=== PATIENT | male | born 1985 | race Caucasian/White ===

== ENCOUNTER 2019-11-21 19:02 | Emergency (ER) | payer MEDICAID, OTHER ==
[~2019-11-21] VITALS: Ht 180.3 cm; Wt 106.6 kg
[2019-11-21] MEDS ORDERED: IBUPROFEN 800 MG TAB PO ONE (22:00)
[2019-11-21] MEDS ORDERED: BACLOFEN 10 MG TAB PO ONE (22:00)
[2019-11-21] MEDS ORDERED: ACETAMINOPHEN 500 MG TAB PO ONE (22:00)
[2019-11-21 22:13] VITALS: BP 114/69
== END 2019-11-21 22:40 | disposition home or self-care (01) ==
LOC: ER 19:10
DX: S13.4XXA Sprain of ligaments of cervical spine, initial encounter (principal); M62.838 Other muscle spasm; V89.2XXA Person injured in unspecified motor-vehicle accident, traffic, initial encounter; Y93.I9 Activity, other involving external motion; Y92.410 Unspecified street and highway as the place of occurrence of the external cause; Y99.8 Other external cause status
CPT/HCPCS: 72125; 72128; 72131

== ENCOUNTER 2020-04-12 22:21 | Emergency (ER) | payer MEDICAID, OTHER ==
[~2020-04-12] VITALS: Ht 180.3 cm; Wt 104.3 kg
[2020-04-12 23:00] VITALS: BP 119/65
[2020-04-12] MEDS ORDERED: FLUORESCEIN SOD 1 MG TEST STRIP LEFTEYE ONE (23:00)
[2020-04-12] MEDS ORDERED: TETRACAINE HCL 0.5% OPTH(EYE) SOLN 4ML LEFTEYE ONE (23:00)
== END 2020-04-12 23:32 | disposition home or self-care (01) ==
LOC: ER 22:21
DX: S05.02XA Injury of conjunctiva and corneal abrasion without foreign body, left eye, initial encounter (principal); X58.XXXA Exposure to other specified factors, initial encounter; Y93.89 Activity, other specified; Y92.89 Other specified places as the place of occurrence of the external cause; Y99.8 Other external cause status

== ENCOUNTER 2025-04-29 21:40 | Emergency (ER) | payer BC, MEDICAID ==
[~2025-04-29] VITALS: Ht 180.3 cm; Wt 100.0 kg
[2025-04-29 22:07] VITALS: TEMP 98.6
[2025-04-29] MEDS: ONDANSETRON HCL 4 MG/2 ML VIAL IV ONE (22:18)
[2025-04-29] MEDS: MORPHINE SULFATE 4 MG/ML SYR/VIAL IV ONE (22:18)
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
--- NOTE | 2025-04-29 22:45 | DVH ---
COMPUTERIZED TOMOGRAPHY OF THE HEAD WITHOUT CONTRAST COMPUTERIZED TOMOGRAPHY OF THE CERVICAL SPINE, NONCONTRAST REASON FOR STUDY: HEAD INJURY. NECK INJURY. COMPARISON: None TECHNIQUE: Helical tomographic scans were obtained through the brain. 2-D coronal and sagittal reformatted images are provided. Automated exposure control was used. CT of the entire cervical spine was performed in routine fashion with sagittal and coronal reconstructions. Soft tissues and bone windows were filmed. Radiation optimization: All CT scans at this facility use at least one of these dose optimization techniques: Automated exposure control mA and/or kV adjustment per patient size (includes targeted exams where dose is matched to clinical indication) or iterative reconstruction. RADIATION DOSE: Head: CTDI: 61 mGy DLP: 978 mGy-cm C-Spine: CTDI: 27 mGy DLP: 740 mGy-cm FINDINGS: No suspicious intracranial hyperdensity to suggest acute blood. There is no mass effect nor midline shift. There is no hydrocephalus. The suprasellar cistern is intact. The calvarium is intact. The visualized mastoid air cells and paranasal sinuses are clear. There is right frontal scalp la ceration in the supraorbital region. The intraorbital structures appear normal. The vertebral bodies are normal in height with no evidence of fracture. There is maintenance of the normal cervical lordosis. There is moderate disc height loss at C6-C7 with endplate hypertrophy. There is no listhesis. The prevertebral soft tissues are within normal limits. There is no pathologic lymphadenopathy identified by size criteria. The visualized lung apices are grossly clear IMPRESSION: No acute intracranial abnormality. No evidence of acute fracture of the cervical spine.
[2025-04-30] MEDS ORDERED: LIDOCAINE W/ EPINEPHRINE 1.5 % INJ 5ML AMP IJ ONE (00:15)
[2025-04-30] MEDS: LIDOCAINE 1% HCL (LOCAL ANESTH.) INJ 20ML MDV ID ONE (00:30)
[2025-04-30 01:00] VITALS: BP 114/76; PULSE 54; RESP 19; O2SAT 96
[2025-04-30] MEDS ORDERED: IBUP-1456 PO (01:03)
== END 2025-04-30 02:11 | disposition home or self-care (01) ==
LOC: ER 21:40
DX: S06.0X0A Concussion without loss of consciousness, initial encounter (principal); S01.81XA Laceration without foreign body of other part of head, initial encounter; S13.4XXA Sprain of ligaments of cervical spine, initial encounter; W22.8XXA Striking against or struck by other objects, initial encounter; Y93.89 Activity, other specified; Y92.89 Other specified places as the place of occurrence of the external cause; Y99.8 Other external cause status
CPT/HCPCS: 12014; 70450; 72125; 96374; 96375; 99285; A4649; J2003; J2270; J2405